=== PATIENT | male | born 1955 ===

== ENCOUNTER → 2021-10-17 | Outpatient (CLI) | payer MEDICARE, OTHER | LOC: COL.RAD 13:05 | DX: Z01.812 Encounter for preprocedural laboratory examination (principal); M79.9 Soft tissue disorder, unspecified | CPT/HCPCS: Q9967 ==

== ENCOUNTER → 2021-11-06 | Outpatient (CLI) | payer MEDICARE, OTHER | LOC: COL.RAD 13:42 | DX: D17.22 Benign lipomatous neoplasm of skin and subcutaneous tissue of left arm (principal) ==